=== PATIENT | male | born 1955 | race African-American/Black ===

== ENCOUNTER 2017-03-03 08:42 | Day surgery (SDC) | payer MEDICARE, BC ==
[~2017-03-03] VITALS: Ht 182.9 cm; Wt 87.1 kg
[~2017-03-03 08:42] MED LIST: NO HOME MEDICATIONS
[2017-03-03 10:54] VITALS: BP 125/77; PULSE 66; TEMP 97.7
[2017-03-03] MEDS ORDERED: LIPITOR 40MG TA40 MG PO (11:35)
[2017-03-03] MEDS ORDERED: PAXIL 30MG30 MG PO (11:36)
[2017-03-03] MEDS ORDERED: NORVASC 10MG10 MG PO (11:37)
[2017-03-03] MEDS ORDERED: CIALIS2.5 MG PO (11:37)
[2017-03-03] MEDS ORDERED: FOLIC ACID800 MCG PO (11:38)
[2017-03-03] MEDS ORDERED: DESYREL 50MG50 MG PO (11:38)
[2017-03-03] MEDS ORDERED: FLOMAX 0.40.4 MG/CAP PO (11:39)
[2017-03-03] MEDS ORDERED: PERCOCET 325 MG1 TA3 PO (11:39)
[2017-03-03] MEDS ORDERED: VALIUM 5MG T5 MG/TAB PO (11:40)
[2017-03-03] MEDS ORDERED: FLEXERIL 1010 MG/TAB PO (11:40)
[2017-03-03 12:59] VITALS: BP 92/46; PULSE 66
[2017-03-03 13:14] VITALS: BP 113/76; PULSE 69
[2017-03-03 13:29] VITALS: BP 95/79; PULSE 66
[2017-03-03 13:44] VITALS: BP 113/85; PULSE 61
== END 2017-03-03 14:15 | disposition home or self-care (01) ==
LOC: SDCO 08:42
DX: N40.1 Benign prostatic hyperplasia with lower urinary tract symptoms (principal); R39.15 Urgency of urination; E78.5 Hyperlipidemia, unspecified; F41.9 Anxiety disorder, unspecified; F32.9 Major depressive disorder, single episode, unspecified; N52.9 Male erectile dysfunction, unspecified; I10 Essential (primary) hypertension; Z86.19 Personal history of other infectious and parasitic diseases; Z96.653 Presence of artificial knee joint, bilateral; M19.90 Unspecified osteoarthritis, unspecified site; D64.9 Anemia, unspecified; G89.29 Other chronic pain; M54.9 Dorsalgia, unspecified
CPT/HCPCS: J0690; J2250; J2704; J3010; J7120

== ENCOUNTER 2018-05-25 19:30 | Observation (INO) | payer BC, MEDICARE ==
[~2018-05-25] VITALS: Ht 182.9 cm; Wt 79.0 kg
[~2018-05-25 19:30] MED LIST changes: +CIALIS2.5 MG PO; +DESYREL 50MG50 MG PO; +FLEXERIL 1010 MG/TAB PO; +FLOMAX 0.40.4 MG/CAP PO; +FOLIC ACID800 MCG PO; +LIPITOR 40MG TA40 MG PO; +NORVASC 10MG10 MG PO; +PAXIL 30MG30 MG PO; +PERCOCET 325 MG1 TA3 PO; +VALIUM 5MG T5 MG/TAB PO
[2018-05-25 20:53] LABS: BASO % 0.9 % (0.0-2.0); EOS # 0.1 (0.0-0.7); EOS % 2.4 % (0-4.0); GRAN # 1.7 (1.4-6.5); GRAN % 53.3 % (42.2-75.2); HEMATOCRIT 51.7 % (42.0-52.0); HEMOGLOBIN 17.7 g/dl (13.5-18.0); LYMPH # 1.1 (1.2-3.4); MEAN CELL VOLUME 94 fl (80.0-100.0); MEAN CORPUSCULAR HEMOGLOBIN 32 pg (27.0-31.0); MEAN CORPUSCULAR HGB CONC 34 g/dl (33.0-37.0); MEAN PLATELET VOLUME 9.5 fl (7.4-10.4); MONO # 0.3 (0.1-0.6); MONO % 10.4 % (1.7-9.3); PLATELET COUNT 275 K/mm3 (130-400); RED BLOOD COUNT 5.53 M/mm3 (4.20-5.60); REDCELL DISTRIBUTION WIDTH-CV 12.7 % (11.5-14.5)
[2018-05-25 21:08] LABS: ALANINE AMINOTRANSFERASE 39 U/L (21-72); ALBUMIN 4.5 gm/dL (3.5-5.0); ALKALINE PHOSPHATASE 145 U/L (50-136); ANION GAP 9 mmol/L (7-16); AST,SGOT 54 U/L (15-37); BILIRUBIN,TOTAL 1.6 mg/dL (0.0-1.0); BLOOD UREA NITROGEN 15 mg/dL (9-20); C-REACTIVE PROTEIN 1.6 mg/dL (0.0-0.9); CALCIUM 9.8 mg/dL (8.4-10.2); CARBON DIOXIDE 31 mmol/L (22-30); CHLORIDE 102 mmol/L (98-107); CREATINE KINASE 739 U/L (55-170); CREATININE, serum 0.93 mg/dL (0.66-1.25); GLUCOSE 84 mg/dL (74-106); LIPASE 29 U/L (23-300); POTASSIUM 3.5 mmol/L (3.4-5.0); SODIUM 142 mmol/L (137-145); TOTAL PROTEIN 8.6 gm/dL (6.4-8.2)
[2018-05-25 21:11] LABS: ACETAMINOPHEN < 10 ug/mL (10-30); ALCOHOL(ethanol),MEDICAL < 10 mg/dL; SALICYLATE < 1.0 mg/dL
[2018-05-25 21:14] LABS: LITHIUM < 0.2 mmol/L (0.6-1.2)
[2018-05-25 21:16] LABS: TROPONIN-I < 0.012 ng/mL (0.000-0.034)
[2018-05-25 22:30] LABS: COLLECTION METHOD CLEAN CATCH
[2018-05-25 22:44] LABS: PH 5 (5-8); SQUAMOUS EPITHELIAL None Seen /hpf; TRICYCLIC ANTIDEPRESS URINE NEGATIVE; URINE APPEARANCE Clear; URINE BACTERIA None Seen /hpf; URINE BILIRUBIN Negative (NEGATIVE); URINE BLOOD Negative (NEGATIVE); URINE COLOR Amber; URINE GLUCOSE Negative (NEGATIVE); URINE KETONE 1+ (NEGATIVE); URINE LEUKOCYTE ESTERASE Negative (NEGATIVE); URINE NITRATE Negative (NEGATIVE); URINE PROTEIN(semi-quant) 2+ (NEGATIVE); URINE RBC 0-2 /hpf
[2018-05-25] MEDS ORDERED: HCTZ12.5TAB PO (22:55)
[2018-05-26] MEDS ORDERED: PROSCAR 5MG5 MG PO (01:14)
[2018-05-26 01:30] VITALS: BP 153/90; PULSE 74; TEMP 98.3
[2018-05-26 04:09] VITALS: BP 125/81; PULSE 65; TEMP 97.6
[2018-05-26 06:58] LABS: BASO % 0.6 % (0.0-2.0); EOS # 0.1 (0.0-0.7); EOS % 2.1 % (0-4.0); GRAN # 1.8 (1.4-6.5); HEMATOCRIT 46.5 % (42.0-52.0); LYMPH # 1.1 (1.2-3.4); LYMPH % 31.5 % (20.0-51.0); MEAN CELL VOLUME 93 fl (80.0-100.0); MEAN CORPUSCULAR HEMOGLOBIN 32 pg (27.0-31.0); MEAN CORPUSCULAR HGB CONC 34 g/dl (33.0-37.0); MEAN PLATELET VOLUME 9.9 fl (7.4-10.4); MONO # 0.5 (0.1-0.6); MONO % 13.5 % (1.7-9.3); PLATELET COUNT 234 K/mm3 (130-400); RED BLOOD COUNT 5.01 M/mm3 (4.20-5.60); REDCELL DISTRIBUTION WIDTH-CV 12.6 % (11.5-14.5)
[2018-05-26 07:00] VITALS: BP 106/66; PULSE 67; TEMP 98
[2018-05-26 07:08] LABS: ALBUMIN 3.8 gm/dL (3.5-5.0); BILIRUBIN,TOTAL 1.7 mg/dL (0.0-1.0); CALCIUM 8.8 mg/dL (8.4-10.2); CREATININE, serum 0.78 mg/dL (0.66-1.25); POTASSIUM 3.4 mmol/L (3.4-5.0); TOTAL PROTEIN 7.3 gm/dL (6.4-8.2)
[2018-05-26 10:55] VITALS: BP 152/86; PULSE 88; TEMP 97.7
[2018-05-26 16:27] VITALS: BP 149/82; PULSE 70; TEMP 98.4
[2018-05-26 19:57] VITALS: BP 138/73; PULSE 99; TEMP 98.1
[2018-05-27 01:21] VITALS: BP 121/66; PULSE 72; TEMP 98.9
[2018-05-27 05:33] VITALS: BP 127/77; PULSE 69; TEMP 98.5
[2018-05-27 06:45] LABS: BASO % 0.3 % (0.0-2.0); EOS # 0.1 (0.0-0.7); GRAN # 1.4 (1.4-6.5); GRAN % 45.5 % (42.2-75.2); HEMATOCRIT 40.6 % (42.0-52.0); HEMOGLOBIN 14.3 g/dl (13.5-18.0); LYMPH # 1.1 (1.2-3.4); LYMPH % 36.7 % (20.0-51.0); MEAN CELL VOLUME 93 fl (80.0-100.0); MEAN CORPUSCULAR HEMOGLOBIN 33 pg (27.0-31.0); MEAN CORPUSCULAR HGB CONC 35 g/dl (33.0-37.0); MEAN PLATELET VOLUME 9.4 fl (7.4-10.4); MONO # 0.4 (0.1-0.6); MONO % 14.5 % (1.7-9.3); PLATELET COUNT 208 K/mm3 (130-400); RED BLOOD COUNT 4.36 M/mm3 (4.20-5.60); REDCELL DISTRIBUTION WIDTH-CV 12.6 % (11.5-14.5)
[2018-05-27 07:10] LABS: CALCIUM 8.2 mg/dL (8.4-10.2); CREATININE, serum 0.8 mg/dL (0.66-1.25); POTASSIUM 3.4 mmol/L (3.4-5.0)
[2018-05-27 07:18] VITALS: BP 138/89; PULSE 75; TEMP 97.5
[2018-05-27 12:11] VITALS: BP 145/93; PULSE 67; TEMP 97.7
[2018-05-27 13:49] LABS: RPR (VDRL) Negative (Negative)
[2018-05-27] MEDS ORDERED: TYLENOL 500MG500 MG PO (14:34)
[2018-05-27] MEDS ORDERED: PAXIL 20MG20 MG PO (14:35)
[2018-05-27] MEDS ORDERED: SEROQUEL 2525 MG/TAB PO (14:35)
[2018-05-27 15:26] VITALS: BP 143/89; PULSE 72; TEMP 97.8
== END 2018-05-27 16:15 ==
LOC: COL.ER 19:30 → MEDICAL 23:30
PROVIDERS: Emergency Medicine; Nurse Practitioner Family; Physician Assistant
DX: R53.1 Weakness (principal); I10 Essential (primary) hypertension; E78.5 Hyperlipidemia, unspecified; B19.20 Unspecified viral hepatitis C without hepatic coma; G89.29 Other chronic pain; M54.9 Dorsalgia, unspecified; M25.569 Pain in unspecified knee; N40.1 Benign prostatic hyperplasia with lower urinary tract symptoms; R33.9 Retention of urine, unspecified; F12.929 Cannabis use, unspecified with intoxication, unspecified; R21 Rash and other nonspecific skin eruption; G31.84 Mild cognitive impairment of uncertain or unknown etiology; R74.8 Abnormal levels of other serum enzymes; Z88.6 Allergy status to analgesic agent; Z88.8 Allergy status to other drugs, medicaments and biological substances; Z81.8 Family history of other mental and behavioral disorders
CPT/HCPCS: 99232-AI; A9585; G0008; G0378; G8978-GP; G8979-GP; G8987-GO; G8988-GO; J1650; J7030; Q9967

== ENCOUNTER 2018-05-27 16:05 | Inpatient (IN) | payer BC, MEDICARE ==
[~2018-05-27] VITALS: Ht 182.9 cm; Wt 80.3 kg
[~2018-05-27 16:05] MED LIST changes: +HCTZ12.5TAB PO; +PAXIL 20MG20 MG PO; +PROSCAR 5MG5 MG PO; +SEROQUEL 2525 MG/TAB PO; +TYLENOL 500MG500 MG PO
[2018-05-27 16:32] VITALS: BP 157/104; PULSE 69; TEMP 97
[2018-05-27 18:17] VITALS: BP 160/100; PULSE 62; TEMP 97
[2018-05-27 21:00] VITALS: BP 135/63; PULSE 67
[2018-05-28 06:19] VITALS: BP 128/77; PULSE 66; TEMP 97
[2018-05-28 17:26] VITALS: BP 155/102; PULSE 58; TEMP 97.3
[2018-05-28 19:26] VITALS: BP 148/98
[2018-05-29 04:58] VITALS: BP 121/74; PULSE 63; TEMP 98.7
[2018-05-29 17:30] VITALS: BP 157/88; PULSE 72; TEMP 98.1
[2018-05-30 04:48] VITALS: BP 123/62; PULSE 62; TEMP 98.2
[2018-05-30 18:12] VITALS: BP 132/85; PULSE 75; TEMP 98.2
[2018-05-31 06:15] VITALS: BP 120/74; PULSE 77; TEMP 97.6
[2018-05-31 17:02] VITALS: BP 143/83; PULSE 72; TEMP 98.3
[2018-06-01 03:42] VITALS: BP 116/61; PULSE 61; TEMP 98.5
[2018-06-01 16:30] VITALS: BP 156/90; PULSE 86; TEMP 98.3
[2018-06-02 03:38] VITALS: BP 114/69; PULSE 77; TEMP 98.5
[2018-06-02 15:25] VITALS: BP 150/89; PULSE 76; TEMP 97.9
[2018-06-03 04:11] VITALS: BP 100/60; PULSE 67; TEMP 98.2
[2018-06-03 18:35] VITALS: BP 141/85; PULSE 85; TEMP 97
[2018-06-04 04:22] VITALS: BP 125/87; PULSE 79; TEMP 97.2
[2018-06-04 16:01] VITALS: BP 145/97; PULSE 71; TEMP 97
[2018-06-05 03:59] VITALS: BP 112/65; PULSE 66; TEMP 98.5
[2018-06-05 19:13] VITALS: BP 125/87; PULSE 96; TEMP 97.4
[2018-06-05 20:05] VITALS: BP 154/84; PULSE 73; TEMP 98
[2018-06-06 05:12] VITALS: BP 112/94; PULSE 85; TEMP 96.2
[2018-06-06 16:33] VITALS: BP 131/86; PULSE 71; TEMP 98.3
[2018-06-07 05:30] VITALS: BP 102/64; PULSE 73; TEMP 97.6
[2018-06-07 16:22] VITALS: BP 137/94; PULSE 77; TEMP 98
[2018-06-08 07:04] VITALS: BP 131/82; PULSE 84; TEMP 97.9
[2018-06-08] MEDS ORDERED: ULTRAM 50MG TAB50 MG PO (08:33)
[2018-06-08] MEDS ORDERED: PAXIL 20MG20 MG PO (08:33)
[2018-06-08] MEDS ORDERED: SEROQUEL 2525 MG/TAB PO (08:33)
== END 2018-06-08 12:45 | disposition home or self-care (01) | DRG 93 ==
DX: G72.89 Other specified myopathies (principal); F32.9 Major depressive disorder, single episode, unspecified; F41.1 Generalized anxiety disorder; Z23 Encounter for immunization; I10 Essential (primary) hypertension; E78.5 Hyperlipidemia, unspecified; B18.2 Chronic viral hepatitis C; N40.1 Benign prostatic hyperplasia with lower urinary tract symptoms; R33.8 Other retention of urine; G89.29 Other chronic pain; F12.10 Cannabis abuse, uncomplicated
CPT/HCPCS: 99222-AI; 99232-AI; 99239; J1650

== ENCOUNTER → 2018-07-27 | Outpatient (CLI) | payer BC, MEDICARE ==
[~2018-07-27] MED LIST changes: +ULTRAM 50MG TAB50 MG PO
== END ==
LOC: BHSO 12:49
DX: F43.10 Post-traumatic stress disorder, unspecified (principal)

== ENCOUNTER → 2018-10-29 | Outpatient (CLI) | payer BC, MEDICARE | LOC: BHSO 09:21 | DX: F43.10 Post-traumatic stress disorder, unspecified (principal) | CPT/HCPCS: G0463 ==

== ENCOUNTER → 2019-01-27 | Outpatient (CLI) | payer BC, MEDICARE | LOC: BHSO 09:37 | DX: F43.10 Post-traumatic stress disorder, unspecified (principal) | CPT/HCPCS: G0463 ==

== ENCOUNTER → 2022-02-07 | Outpatient (CLI) | payer MEDICARE, BC ==
[~2022-02-07] VITALS: Ht 182.9 cm; Wt 71.8 kg
[~2022-02-07] MED LIST changes: +CVS SPECTRAVIT1 EA15 PO; +MOBIC 7.5MG7.5 MG PO; +PAXIL40 MG PO
[2022-02-07 10:06] VITALS: BP 133/80; PULSE 63; TEMP 98.1
[2022-02-07 11:50] VITALS: BP 154/97; PULSE 63
== END ==
LOC: COL.RAD 09:30
DX: M54.2 Cervicalgia (principal); M25.512 Pain in left shoulder